=== PATIENT | male | born 1985 | race Two or more races ===

== ENCOUNTER 2020-12-02 07:43 | Emergency (ER) | payer OTHER ==
[~2020-12-02] VITALS: Ht 182.9 cm; Wt 86.2 kg
== END 2020-12-02 13:04 | disposition home or self-care (01) ==
LOC: ER 07:43
DX: S60.02 Contusion of index finger without damage to nail (principal); X58.XXXS Exposure to other specified factors, sequela

== ENCOUNTER 2021-05-12 18:26 | Emergency (ER) | payer OTHER ==
[~2021-05-12] VITALS: Ht 182.9 cm; Wt 97.5 kg
[2021-05-12] MEDS ORDERED: CIPRO500 MG PO (19:19)
[2021-05-12] MEDS ORDERED: SILVADENE20 GM TOP (19:19)
== END 2021-05-12 19:47 | disposition home or self-care (01) ==
LOC: ER 18:26
DX: T25.221A Burn of second degree of right foot, initial encounter (principal); Y92.010 Kitchen of single-family (private) house as the place of occurrence of the external cause; X11.8XXA Contact with other hot tap-water, initial encounter

== ENCOUNTER 2021-05-18 21:15 | Inpatient (IN) | payer OTHER ==
[~2021-05-18] VITALS: Ht 182.9 cm; Wt 81.6 kg
[~2021-05-18 21:15] MED LIST: CIPRO500 MG PO; SILVADENE20 GM TOP
== END 2021-05-26 13:38 | disposition home or self-care (01) | DRG 603 ==
LOC: ER 21:15 → MEDI 05-19 00:55
PROVIDERS: ADMIT Internal Medicine; ATTEND Internal Medicine
DX: L03.115 Cellulitis of right lower limb (principal); L08.89 Other specified local infections of the skin and subcutaneous tissue; T25.221D Burn of second degree of right foot, subsequent encounter; X12.XXXD Contact with other hot fluids, subsequent encounter; Y93.89 Activity, other specified; Y92.89 Other specified places as the place of occurrence of the external cause; Y99.8 Other external cause status; Z20.822 Contact with and (suspected) exposure to COVID-19

== ENCOUNTER 2022-06-08 14:42 | Emergency (ER) | payer OTHER ==
[~2022-06-08] VITALS: Ht 182.9 cm; Wt 90.7 kg
[2022-06-08] MEDS ORDERED: CELEBREX200MG PO (20:05)
[2022-06-08] MEDS ORDERED: METAXALONE800 MG PO (20:05)
== END 2022-06-08 20:13 | disposition home or self-care (01) ==
LOC: ER 14:42
DX: M54.9 Dorsalgia, unspecified (principal); Z91.013 Allergy to seafood